=== PATIENT | male | born 1960 | race Caucasian/White ===

== ENCOUNTER 2018-04-25 12:46 | Day surgery (SDC) | payer OTHER ==
[2018-04-25] MEDS ORDERED: FENTAnyl 50 MCG/ML VIAL (14:38)
[2018-04-25] MEDS ORDERED: PROPOFOL 20 ML (14:38)
== END 2018-04-25 16:14 | disposition home or self-care (01) ==
LOC: GIL 12:46
DX: I85.00 Esophageal varices without bleeding (principal); K29.70 Gastritis, unspecified, without bleeding; I10 Essential (primary) hypertension; E78.00 Pure hypercholesterolemia, unspecified
CPT/HCPCS: 43235